=== PATIENT | male | born 1945 | race Caucasian/White ===

== ENCOUNTER 2016-12-11 22:03 | Emergency (ER) | payer MEDICARE ==
--- NOTE | 2016-12-11 22:46 | EDM.PDOC ---
ED HPI GENERAL MEDICAL PROBLEM - General Chief Complaint: Cardiovascular Problem Stated Complaint: A FIB Time Seen by Provider: 12/11/16 22:15 Source of Information: Reports: Patient History Limitations: Reports: No Limitations - History of Present Illness INITIAL COMMENTS - FREE TEXT/NARRATIVE: pt was doing alot of mowing and he developed some tightness in his chest and felt like his heart was irregular. He states that started about 8 thirty and it did persist. [facility] He feels good now. He states this improved on the way in and now he feels back to normmal with no tightness. Onset: Today, Sudden Duration: Hour(s): Location: Reports: Chest Associated Symptoms: Reports: Other (pt had no severe pain but he did have chest tightness. ) - Related Data Allergies Allergy/AdvReac Type Severity Reaction Status Date / Time shellfish derived Allergy Anaphylactic Verified 12/11/16 22:18 Shock Sulfa (Sulfonamide Allergy Hives Verified 12/11/16 22:18 Antibiotics) Home Meds: Home Meds Apixaban [Eliquis] 5 mg PO BID 12/11/16 [History] Hydrochlorothiazide 1 tab PO DAILY 12/11/16 [History] Past Medical History Cardiovascular History: Reports: Afib Respiratory History: Reports: Sleep Apnea Musculoskeletal History: Reports: Fracture - Past Surgical History HEENT Surgical History: Reports: Other (See Below) Other HEENT Surgeries/Procedures: deviated septum Musculoskeletal Surgical History: Reports: Other (See Below) Other Musculoskeletal Surgeries/Procedures:: jaw surgery d/t fracture Social & Family History - Tobacco Use Smoking Status *Q: Heavy Tobacco Smoker Years of Tobacco use: 35 Packs/Tins Daily: 1 - Alcohol Use Days Per Week of Alcohol Use: 5 Number of Drinks Per Day: 1 Total Drinks Per Week: 5 - Recreational Drug Use Recreational Drug Use: No ED ROS GENERAL - Review of Systems Review Of Systems: See Below Constitutional: Reports: No Symptoms HEENT: Reports: No Symptoms Respiratory: Reports: No Symptoms Cardiovascular: Reports: Palpitations, Other ( chest tightness. ) Endocrine: Reports: No Symptoms GI/Abdominal: Reports: No Symptoms : Reports: No Symptoms Musculoskeletal: Reports: No Symptoms Skin: Reports: No Symptoms Neurological: Reports: No Symptoms Psychiatric: Reports: No Symptoms ED EXAM, GENERAL - Physical Exam Exam: See Below Free Text/Narrative:: pt had good color and his rhythm was sinus on arrival. He does have a left bundle branch block. We have no old ekgs here to compare. Will attempt to get a old ekg from [facility] in the [facility]. Exam Limited By: No Limitations General Appearance: Alert, No Apparent Distress, Other (pt states all of the discomfort is gone. ) Ears: Normal TMs Nose: Normal Inspection Throat/Mouth: Normal Inspection Head: Atraumatic Neck: Normal Inspection Respiratory/Chest: No Respiratory Distress Cardiovascular: Regular Rate, Rhythm GI/Abdominal: Soft, Non-Tender (Male) Exam: Normal Inspection Rectal (Males) Exam: Deferred Back Exam: Normal Inspection Extremities: Normal Inspection Neurological: Alert, Oriented, Normal Cognition Course - Vital Signs Last Recorded V/S: Last Vital Signs Temp 35.5 C 12/11/16 22:13 Pulse 86 12/11/16 22:58 Resp 16 12/11/16 22:38 BP 128/70 12/11/16 22:58 Pulse Ox 94 L 12/11/16 22:58 - Orders/Labs/Meds Labs: Laboratory Tests 12/11/16 12/11/16 12/11/16 Range/Units 22:35 22:35 22:35 WBC 9.0 (4.5-11.0) K/uL RBC 5.13 (4.30-5.90) M/uL Hgb 16.1 H (12.0-15.0) g/dL Hct 47.2 (40.0-54.0) % MCV 92 (80-98) fL MCH 31 (27-31) pg MCHC 34 (32-36) % Plt Count 238 (150-400) K/uL Neut % (Auto) 59 (36-66) % Lymph % (Auto) 28 (24-44) % [place] % (Auto) 10 H (2-6) % Eos % (Auto) 2 (2-4) % Baso % (Auto) 1 (0-1) % Sodium 142 (140-148) mmol/L Potassium 3.3 L (3.6-5.2) mmol/L Chloride 106 (100-108) mmol/L Carbon Dioxide 27 (21-32) mmol/L Anion Gap 12.3 (5.0-14.0) mmol/L BUN 21 H (7-18) mg/dL Creatinine 1.0 (0.8-1.3) mg/dL Est Cr Clr Drug Dosing 74.25 mL/min Estimated GFR (MDRD) > 60 (>60) Glucose 94 (74-106) mg/dL Calcium 8.8 (8.5-10.1) mg/dL Magnesium (1.8-2.4) mg/dL Total Bilirubin 0.3 (0.2-1.0) mg/dL AST 24 (15-37) U/L ALT 37 (12-78) U/L Alkaline Phosphatase 63 (46-116) U/L Creatine Kinase 225 (39-308) U/L Troponin I < 0.017 (0.000-0.056) ng/mL Total Protein 6.9 (6.4-8.2) g/dL Albumin 3.4 (3.4-5.0) g/dL Globulin 3.5 (2.3-3.5) g/dL Albumin/Globulin Ratio 1.0 L (1.2-2.2) Urine Color Urine Appearance Urine pH (4.5-8.0) Ur Specific [place] (1.008-1.030) Urine Protein (NEGATIVE) mg/dL Urine Glucose (UA) (NEGATIVE) mg/dL Urine Ketones (NEGATIVE) mg/dL Urine Occult Blood (NEGATIVE) Urine Nitrite (NEGAITVE) Urine Bilirubin (NEGATIVE) Urine Urobilinogen (NORMAL) mg/dL Ur Leukocyte Esterase (NEGATIVE) Urine RBC (0-5) Urine WBC (0-5) Ur Epithelial Cells Amorphous Sediment Urine Bacteria Urine Mucus 12/11/16 12/11/16 Range/Units 22:35 23:02 WBC (4.5-11.0) K/uL RBC (4.30-5.90) M/uL Hgb (12.0-15.0) g/dL Hct (40.0-54.0) % MCV (80-98) fL MCH (27-31) pg MCHC (32-36) % Plt Count (150-400) K/uL Neut % (Auto) (36-66) % Lymph % (Auto) (24-44) % [place] % (Auto) (2-6) % Eos % (Auto) (2-4) % Baso % (Auto) (0-1) % Sodium (140-148) mmol/L Potassium (3.6-5.2) mmol/L Chloride (100-108) mmol/L Carbon Dioxide (21-32) mmol/L Anion Gap (5.0-14.0) mmol/L BUN (7-18) mg/dL Creatinine (0.8-1.3) mg/dL Est Cr Clr Drug Dosing mL/min Estimated GFR (MDRD) (>60) Glucose (74-106) mg/dL Calcium (8.5-10.1) mg/dL Magnesium 2.0 (1.8-2.4) mg/dL Total Bilirubin (0.2-1.0) mg/dL AST (15-37) U/L ALT (12-78) U/L Alkaline Phosphatase (46-116) U/L Creatine Kinase (39-308) U/L Troponin I (0.000-0.056) ng/mL Total Protein (6.4-8.2) g/dL Albumin (3.4-5.0) g/dL Globulin (2.3-3.5) g/dL Albumin/Globulin Ratio (1.2-2.2) Urine Color Yellow Urine Appearance Clear Urine pH 5.0 (4.5-8.0) Ur Specific [place] 1.020 (1.008-1.030) Urine Protein Negative (NEGATIVE) mg/dL Urine Glucose (UA) Normal (NEGATIVE) mg/dL Urine Ketones Negative (NEGATIVE) mg/dL Urine Occult Blood Moderate (NEGATIVE) Urine Nitrite Negative (NEGAITVE) Urine Bilirubin Negative (NEGATIVE) Urine Urobilinogen Normal (NORMAL) mg/dL Ur Leukocyte Esterase Negative (NEGATIVE) Urine RBC 10-20 H (0-5) Urine WBC 0-5 (0-5) Ur Epithelial Cells Not seen Amorphous Sediment Rare Urine Bacteria Not seen Urine Mucus Not seen Meds: Medications Discontinued Medications Generic Name Dose Route Start Last Admin Trade Name Mikeq PRN Reason Stop Dose Admin Potassium Chloride 20 meq 12/12/16 09:00 12/12/16 00:19 Klor-Con M20 PO 20 meq DAILY YECENIA Administration Potassium Chloride Confirm 12/12/16 00:18 Klor-Con M20 Administered 12/12/16 00:19 Dose 20 meq .ROUTE .STK-MED ONE - Re-Assessments/Exams Free Text/Narrative Re-Assessment/Exam: 12/11/16 23:27 pt has k which is 3.3 on the low side, his trop is normal. He does have some rbcs in his urine. He has a high hg. 12/12/16 00:08 Ekg from [facility] was obtained which showed a variable bundle. 12/14/16 13:41 Departure - Departure Time of Disposition: 00:11 Disposition: Home, Self-Care 01 Condition: Fair Clinical Impression: Heart palpitations, Hypokalemia, History of atrial fibrillation Instructions: Atrial Fibrillation, [id number] Referrals: PCP,None [Primary Care Provider] - Forms: ED Department Discharge Care Plan Goals: avoid rigorous activity, keep appt for stress test on tue. rtc if pt develops a rapid heart beat. cont same meds, add kcl 20meq 1 tab daily send a copy of his ekgs and his labs with him.
[2016-12-11 23:05] VITALS: BP 128/70
[2016-12-12] MEDS ORDERED: Potassium Chloride 20 MEQ Tab.ER ONE (00:18)
[2016-12-12] MEDS ORDERED: Potassium Chloride 20 MEQ Tab.ER PO SCH (09:00)
== END 2016-12-12 00:20 | disposition home or self-care (01) ==
LOC: JP.ED 22:03
DX: E87.6 Hypokalemia (principal); R00.2 Palpitations; F17.210 Nicotine dependence, cigarettes, uncomplicated; Z91.013 Allergy to seafood; Z88.2 Allergy status to sulfonamides; Z79.899 Other long term (current) drug therapy
CPT/HCPCS: 36415; 80053; 81001; 82550; 83735; 84484; 85025; 93005; 99285; A9270; 93010; 99284

== ENCOUNTER 2017-09-29 08:33 | Emergency (ER) | payer MEDICARE ==
[2017-09-29] MEDS ORDERED: Sodium Chloride 0.9% 10 ML Syringe FLUSH PRN (08:49)
[2017-09-29] MEDS ORDERED: Aspirin 81 MG Tab.Chew PO ONE (08:49)
[2017-09-29] MEDS ORDERED: Metoprolol Tartrate 5 MG/5 ML SDV IVPUSH ONE (08:50)
--- NOTE | 2017-09-29 08:53 | EDM.PDOC ---
ED HPI GENERAL MEDICAL PROBLEM - General Chief Complaint: Cardiovascular Problem Stated Complaint: ATRIAL FIB Time Seen by Provider: 09/29/17 08:48 Source of Information: Reports: Patient, RN Notes Reviewed History Limitations: Reports: No Limitations - History of Present Illness INITIAL COMMENTS - FREE TEXT/NARRATIVE: 72-year-old gentleman presents to the emergency department today with complaint of chest pain and palpitations, he has a known history of atrial fibrillation with a left bundle branch block currently on anticoagulation of Eliquis. He states this particular event started at 8:00 this morning with palpitations and chest pain he presented to the emergency department for further evaluation, with the chest pain he did have shortness of breath no nausea no vomiting no diaphoresis Chest Pain Score (Numeric/FACES): 0 - Related Data Allergies Allergy/AdvReac Type Severity Reaction Status Date / Time shellfish derived Allergy Anaphylactic Verified 09/29/17 08:45 Shock Sulfa (Sulfonamide Allergy Hives Verified 09/29/17 08:45 Antibiotics) Home Meds: Home Meds Apixaban [Eliquis] 5 mg PO BID 12/11/16 [History] *Crestor 1 tab PO ASDIRECTED 09/29/17 [History] *Lisinopril 1 tab PO DAILY 09/29/17 [History] Hydrocodone/Acetaminophen [Hydrocodon-Acetaminophen 5-325] 1 - 2 tab PO ASDIRECTED PRN 09/29/17 [History] Past Medical History Cardiovascular History: Reports: Afib Respiratory History: Reports: Sleep Apnea Musculoskeletal History: Reports: Fracture - Past Surgical History HEENT Surgical History: Reports: Other (See Below) Other HEENT Surgeries/Procedures: deviated septum Musculoskeletal Surgical History: Reports: Other (See Below) Other Musculoskeletal Surgeries/Procedures:: jaw surgery d/t fracture Social & Family History - Tobacco Use Smoking Status *Q: Current Every Day Smoker Years of Tobacco use: 40 Packs/Tins Daily: 0.7 - Caffeine Use Caffeine Use: Reports: Coffee - Alcohol Use Days Per Week of Alcohol Use: 7 Number of Drinks Per Day: 2 Total Drinks Per Week: 14 - Recreational Drug Use Recreational Drug Use: No ED ROS GENERAL - Review of Systems Review Of Systems: See Below Constitutional: Reports: No Symptoms HEENT: Reports: No Symptoms Respiratory: Reports: Shortness of Breath Cardiovascular: Reports: Chest Pain, Dyspnea on Exertion, Palpitations GI/Abdominal: Reports: No Symptoms Musculoskeletal: Reports: No Symptoms Skin: Reports: No Symptoms Neurological: Reports: No Symptoms ED EXAM, GENERAL - Physical Exam Exam: See Below Free Text/Narrative:: General: Male, not in any distress, alert and oriented x3 HEENT: head is atraumatic normocephalic, eyes pupils equal round reactive to light, sclera clear no conjunctivitis appreciated. Ears tympanic membranes clear and [place] landmarks and light reflex are present bilaterally canals are clear. Nose no septal deviation, nares are clear, no blood present. Mouth mucosa is moist and pink no erythema or exudate noted in soft palate, tongue is midline uvula is midline, dentition is intact. Neck: Supple no thyromegaly no tracheal deviation. Nodes: Cervical nodes subclavicular nodes nontender no palpable lymphadenopathy noted. Lungs: clear to auscultation bilaterally with symmetrical respirations, no adventitious noise appreciated. CV: Tachycardic Regular rate and rhythm S1 and S2 appreciated no murmurs rubs or gallops noted. Abdomen: Soft, nontender, no palpable masses or organomegaly appreciated, no distention no guarding bowel sounds are present, . Neuro: Cranial nerves II through XII grossly intact Skin: Warm and dry, intact Extremities: No lower extremity edema appreciated, Course - Vital Signs Last Recorded V/S: Last Vital Signs Temp 97.2 F 09/29/17 08:44 Pulse 118 H 09/29/17 09:05 Resp 11 L 09/29/17 08:44 BP 131/66 09/29/17 09:05 Pulse Ox 97 09/29/17 08:44 - Orders/Labs/Meds Orders: Active Orders 24 hr Category Date Time Status Cardiac Monitoring [RC] .As Directed Care 09/29/17 08:49 Active EKG Documentation Completion [RC] ASDIRECTED Care 09/29/17 08:49 Active Peripheral IV Care [RC] . DIRECTED Care 09/29/17 08:49 Active Sodium Chloride 0.9% [Normal Saline] 1,000 ml Med 09/29/17 10:30 Active IV ASDIRECTED Sodium Chloride 0.9% [Saline Flush] Med 09/29/17 08:49 Active 10 ml FLUSH ASDIRECTED PRN Peripheral IV Insertion Adult [OM.PC] Stat Oth 09/29/17 08:49 Ordered Saline Lock Insert [OM.PC] Stat Oth 09/29/17 08:49 Ordered EKG 12 Lead [EK] Stat Ther 09/29/17 08:49 Ordered Medication Orders Sodium Chloride (Normal Saline) 1,000 mls @ 500 mls/hr IV ASDIRECTED YECENIA Last Admin: 09/29/17 10:21 Dose: 500 mls/hr Sodium Chloride (Saline Flush) 10 ml FLUSH ASDIRECTED PRN PRN Reason: Keep Vein Open Last Admin: 09/29/17 09:07 Dose: 10 ml Labs: Laboratory Tests 09/29/17 09/29/17 Range/Units 08:54 08:54 WBC 5.5 (4.5-11.0) K/uL RBC 4.88 (4.30-5.90) M/uL Hgb 15.3 H (12.0-15.0) g/dL Hct 44.5 (40.0-54.0) % MCV 91 (80-98) fL MCH 31 (27-31) pg MCHC 34 (32-36) % Plt Count 245 (150-400) K/uL Neut % (Auto) 47 (36-66) % Lymph % (Auto) 35 (24-44) % [place] % (Auto) 14 H (2-6) % Eos % (Auto) 3 (2-4) % Baso % (Auto) 1 (0-1) % Sodium 139 L (140-148) mmol/L Potassium 3.8 (3.6-5.2) mmol/L Chloride 105 (100-108) mmol/L Carbon Dioxide 25 (21-32) mmol/L Anion Gap 12.8 (5.0-14.0) mmol/L BUN 14 (7-18) mg/dL Creatinine 1.1 (0.8-1.3) mg/dL Est Cr Clr Drug Dosing 66.55 mL/min Estimated GFR (MDRD) > 60 (>60) Glucose 119 H (74-106) mg/dL Calcium 9.3 (8.5-10.1) mg/dL Magnesium 1.9 (1.8-2.4) mg/dL Total Bilirubin 0.5 D (0.2-1.0) mg/dL AST 26 (15-37) U/L ALT 26 (12-78) U/L Alkaline Phosphatase 63 (46-116) U/L CK-MB (CK-2) 3.0 (0-3.6) mg/mL Troponin I < 0.017 (0.000-0.056) ng/mL Total Protein 6.4 (6.4-8.2) g/dL Albumin 3.2 L (3.4-5.0) g/dL Globulin 3.2 (2.3-3.5) g/dL Albumin/Globulin Ratio 1.0 L (1.2-2.2) Meds: Medications Generic Name Dose Route Start Last Admin Trade Name Freq PRN Reason Stop Dose Admin Sodium Chloride 1,000 mls @ 500 mls/hr 09/29/17 10:30 09/29/17 10:21 Normal Saline IV 500 mls/hr ASDIRECTED YECENIA Administration Sodium Chloride 10 ml 09/29/17 08:49 09/29/17 09:07 Saline Flush FLUSH 10 ml ASDIRECTED PRN Administration Keep Vein Open Discontinued Medications Generic Name Dose Route Start Last Admin Trade Name Freq PRN Reason Stop Dose Admin Aspirin 324 mg 09/29/17 08:49 09/29/17 09:03 Aspirin PO 09/29/17 08:50 324 mg ONETIME ONE Administration Metoprolol Tartrate 5 mg 09/29/17 08:50 09/29/17 09:05 Lopressor IVPUSH 09/29/17 08:51 5 mg ONETIME ONE Administration - Re-Assessments/Exams Free Text/Narrative Re-Assessment/Exam: 09/29/17 10:19 Remained tachycardic 1:15 range called and discussed case with cardiology on- call at [facility] where he normally receives his care recommended fluid challenge then if remains tachycardic discharge home on metoprolol with follow- up in the office next week for further evaluation Departure - Departure Time of Disposition: 11:37 Disposition: Home, Self-Care 01 Condition: Fair Clinical Impression: Heart palpitations, Atrial fib/flutter, transient Referrals: PCP,None [Primary Care Provider] - Forms: ED Department Discharge Additional Instructions: Start the metoprolol tomorrow 12.5 mg twice a day please follow-up with your geriatric personal care aide next week, call return to the emergency department worsening of symptoms - My Orders Last 24 Hours: My Active Orders 09/29/17 08:49 Cardiac Monitoring [RC] .As Directed EKG Documentation Completion [RC] ASDIRECTED Peripheral IV Care [RC] . DIRECTED Sodium Chloride 0.9% [Saline Flush] 10 ml FLUSH ASDIRECTED PRN Peripheral IV Insertion Adult [OM.PC] Stat Saline Lock Insert [OM.PC] Stat EKG 12 Lead [EK] Stat 09/29/17 10:30 Sodium Chloride 0.9% [Normal Saline] 1,000 ml IV ASDIRECTED - Assessment/Plan Last 24 Hours: My Active Orders 09/29/17 08:49 Cardiac Monitoring [RC] .As Directed EKG Documentation Completion [RC] ASDIRECTED Peripheral IV Care [RC] . DIRECTED Sodium Chloride 0.9% [Saline Flush] 10 ml FLUSH ASDIRECTED PRN Peripheral IV Insertion Adult [OM.PC] Stat Saline Lock Insert [OM.PC] Stat EKG 12 Lead [EK] Stat 09/29/17 10:30 Sodium Chloride 0.9% [Normal Saline] 1,000 ml IV ASDIRECTED Plan: Assessment Acuity = acute Site and laterality = atrial fib \ flutter with rapid ventricular response with spontaneous conversion Etiology = unclear etiology Manifestations = none Location of injury = Home Lab values = EKG demonstrates a left bundle branch block which is not new and then conversion to sinus rhythm, CBC, CMP unremarkable troponin negative, CK-MB negative Plan Trial of 500 mL fluid bolus challenge of normal saline in combination with 5 mg metoprolol he remained tachycardic, per recommendations cardiology will start metoprolol 12.5 mg by mouth twice a day he will follow-up with his geriatric personal care aide next week This note was dictated using [employer] voice recognition software please call with any questions on syntax or grammar.
--- NOTE | 2017-09-29 09:26 | CR ---
CHEST: Portable CLINICAL HISTORY:Chest pain COMPARISON:None FINDINGS: Heart and pulmonary vascularity appear normal. There are atherosclerotic changes in the ao rta.. No infiltrate effusion or pneumothorax seen Impression: No acute cardiopulmonary process.
[2017-09-29] MEDS ORDERED: Sodium Chloride 0.9% 1,000 ML IV SCH (10:30)
[2017-09-29 12:10] VITALS: BP 136/92
== END 2017-09-29 12:05 | disposition home or self-care (01) ==
LOC: JP.ED 08:33
DX: I48.91 Unspecified atrial fibrillation (principal); I48.92 Unspecified atrial flutter; F17.210 Nicotine dependence, cigarettes, uncomplicated; Z79.899 Other long term (current) drug therapy; Z88.2 Allergy status to sulfonamides; Z91.013 Allergy to seafood
CPT/HCPCS: 36415; 71045; 80053; 82553; 83735; 84484; 85025; 93005; 96361; 96374; 99284; A9270; J3490; J7030; J7050

== ENCOUNTER 2020-11-04 11:49 | Emergency (ER) | payer MEDICARE ==
--- NOTE | 2020-11-04 12:27 | EDM.PDOC ---
ED HPI GENERAL MEDICAL PROBLEM - General Chief Complaint: Abdominal Pain Stated Complaint: ABDOMINAL PAIN Time Seen by Provider: 11/04/20 12:20 Source of Information: Reports: Patient, RN Notes Reviewed History Limitations: Reports: No Limitations - History of Present Illness INITIAL COMMENTS - FREE TEXT/NARRATIVE: 75-year-old gentleman presents emergency department day complaint of abdominal pain, states the pain come on suddenly at 930 this morning is constant in nature he is not passed any gas he had a bowel movement 1 hour prior to presentation to department. He has not had any abdominal surgeries. No nausea or vomiting no shortness of breath or chest pain Upper Abdomen Pain Score (Numeric/FACES): 8 - Related Data Allergies Allergy/AdvReac Type Severity Reaction Status Date / Time shellfish derived Allergy Anaphylactic Verified 11/04/20 12:20 Shock Sulfa (Sulfonamide Allergy Hives Verified 11/04/20 12:20 Antibiotics) Home Meds: Home Meds Apixaban [Eliquis] 5 mg PO BID 12/11/16 [History] *Crestor 1 tab PO ASDIRECTED 09/29/17 [History] *Lisinopril 1 tab PO DAILY 09/29/17 [History] Past Medical History HEENT History: Reports: Allergic Rhinitis, Impaired Vision Cardiovascular History: Reports: Afib Respiratory History: Reports: Sleep Apnea Genitourinary History: Reports: Prostate Disorder Musculoskeletal History: Reports: Fracture Dermatologic History: Reports: Eczema - Infectious Disease History Infectious Disease History: Reports: Chicken Pox, Influenza, Measles, Pertussis (Whooping Cough) - Past Surgical History HEENT Surgical History: Reports: Other (See Below) Other HEENT Surgeries/Procedures: deviated septum Cardiovascular Surgical History: Reports: Cardiac Ablation GI Surgical History: Reports: None Musculoskeletal Surgical History: Reports: Other (See Below) Other Musculoskeletal Surgeries/Procedures:: jaw surgery d/t fracture Social & Family History - Tobacco Use Tobacco Use Status *Q: Never Tobacco User - Caffeine Use Caffeine Use: Reports: Coffee ED ROS GENERAL - Review of Systems Review Of Systems: See Below Constitutional: Denies: Fever, Chills HEENT: Reports: No Symptoms Respiratory: Reports: No Symptoms Cardiovascular: Reports: No Symptoms GI/Abdominal: Reports: Abdominal Pain, Distension. Denies: Flatus, Nausea, Vomiting : Reports: No Symptoms ED EXAM, GI/ABD - Physical Exam Exam: See Below Exam Limited By: No Limitations General Appearance: Alert, Mild Distress Respiratory/Chest: No Respiratory Distress, Lungs Clear, Normal Breath Sounds, No Accessory Muscle Use, Chest Non-Tender Cardiovascular: No Murmur, Irregularly Irregular GI/Abdominal Exam: Soft, Distended, Tender. No: Guarding, Rigid, Rebound Course - Vital Signs Last Recorded V/S: Last Vital Signs Temp 97.7 F 11/04/20 12:25 Pulse 55 L 11/04/20 16:30 Resp 18 11/04/20 16:30 BP 141/71 H 11/04/20 16:30 Pulse Ox 97 11/04/20 16:30 - Orders/Labs/Meds Orders: Active Orders 24 hr Category Date Time Status Enema [RC] ASDIRECTED Care 11/04/20 17:40 Active Peripheral IV Care [RC] . DIRECTED Care 11/04/20 12:24 Active Renal Ltd Bi [US] Stat Exams 11/04/20 16:00 Taken Lactated Ringers [Ringers, Lactated] 1,000 ml Med 11/04/20 12:30 Active IV ASDIRECTED Sodium Chloride 0.9% [Saline Flush] Med 11/04/20 12:24 Active 10 ml FLUSH ASDIRECTED PRN Sodium Chloride 0.9% [Saline Flush] Med 11/04/20 13:42 Active 10 ml FLUSH ONETIME PRN Peripheral IV Insertion Adult [OM.PC] Urgent Oth 11/04/20 12:24 Ordered Medication Orders Lactated Ringer's (Ringers, Lactated) 1,000 mls @ 999 mls/hr IV ASDIRECTED [facility] Last Admin: 11/04/20 12:43 Dose: 999 mls/hr Documented by: PREILOR Sodium Chloride (Sodium Chloride 0.9% 10 Ml Syringe) 10 ml FLUSH ASDIRECTED PRN PRN Reason: Keep Vein Open Last Admin: 11/04/20 18:29 Dose: 10 ml Documented by: PREILOR Sodium Chloride (Sodium Chloride 0.9% 10 Ml Syringe) 10 ml FLUSH ONETIME PRN PRN Reason: per radiology protocol Last Admin: 11/04/20 14:00 Dose: 10 ml Documented by: CATHY Labs: Laboratory Tests 11/04/20 11/04/20 11/04/20 Range/Units 12:33 12:33 12:33 WBC 9.9 (4.5-11.0) K/uL RBC 5.02 (4.30-5.90) M/uL Hgb 15.6 H (12.0-15.0) g/dL Hct 46.8 (40.0-54.0) % MCV 93 (80-98) fL MCH 31 (27-31) pg MCHC 33 (32-36) % Plt Count 238 (150-400) K/uL Neut % (Auto) 71.0 H (36-66) % Lymph % (Auto) 14.5 L (24-44) % [place] % (Auto) 10.6 H (2-6) % Eos % (Auto) 1.2 L (2-4) % Baso % (Auto) 2.7 H (0-1) % Sodium 141 (140-148) mmol/L Potassium 4.3 (3.6-5.2) mmol/L Chloride 105 (100-108) mmol/L Carbon Dioxide 27 (21-32) mmol/L Anion Gap 9.2 (5.0-14.0) mmol/L BUN 14 (7-18) mg/dL Creatinine 0.9 (0.8-1.3) mg/dL Est Cr Clr Drug Dosing 77.86 mL/min Estimated GFR (MDRD) > 60 (>60) Glucose 110 H (74-106) mg/dL Lactic Acid 1.4 (0.4-2.0) mmol/L Calcium 9.3 (8.5-10.1) mg/dL Total Bilirubin 0.5 (0.2-1.0) mg/dL AST 20 (15-37) U/L ALT 27 (12-78) U/L Alkaline Phosphatase 73 (46-116) U/L Troponin I < 0.017 (0.000-0.056) ng/mL Total Protein 6.9 (6.4-8.2) g/dL Albumin 3.6 (3.4-5.0) g/dL Globulin 3.3 (2.3-3.5) g/dL Albumin/Globulin Ratio 1.1 L (1.2-2.2) Urine Color (YELLOW) Urine Appearance (CLEAR) Urine pH (5.0-8.0) Ur Specific [place] (1.008-1.030) Urine Protein (NEGATIVE) mg/dL Urine Glucose (UA) (NEGATIVE) mg/dL Urine Ketones (NEGATIVE) mg/dL Urine Occult Blood (NEGATIVE) Urine Nitrite (NEGATIVE) Urine Bilirubin (NEGATIVE) Urine Urobilinogen (0.2-1.0) EU/dL Ur Leukocyte Esterase (NEGATIVE) Urine RBC (0-5) Urine WBC (0-5) Ur Epithelial Cells Amorphous Sediment Urine Bacteria Urine Mucus 11/04/20 Range/Units 14:10 WBC (4.5-11.0) K/uL RBC (4.30-5.90) M/uL Hgb (12.0-15.0) g/dL Hct (40.0-54.0) % MCV (80-98) fL MCH (27-31) pg MCHC (32-36) % Plt Count (150-400) K/uL Neut % (Auto) (36-66) % Lymph % (Auto) (24-44) % [place] % (Auto) (2-6) % Eos % (Auto) (2-4) % Baso % (Auto) (0-1) % Sodium (140-148) mmol/L Potassium (3.6-5.2) mmol/L Chloride (100-108) mmol/L Carbon Dioxide (21-32) mmol/L Anion Gap (5.0-14.0) mmol/L BUN (7-18) mg/dL Creatinine (0.8-1.3) mg/dL Est Cr Clr Drug Dosing mL/min Estimated GFR (MDRD) (>60) Glucose (74-106) mg/dL Lactic Acid (0.4-2.0) mmol/L Calcium (8.5-10.1) mg/dL Total Bilirubin (0.2-1.0) mg/dL AST (15-37) U/L ALT (12-78) U/L Alkaline Phosphatase (46-116) U/L Troponin I (0.000-0.056) ng/mL Total Protein (6.4-8.2) g/dL Albumin (3.4-5.0) g/dL Globulin (2.3-3.5) g/dL Albumin/Globulin Ratio (1.2-2.2) Urine Color Yellow (YELLOW) Urine Appearance Clear (CLEAR) Urine pH 7.0 (5.0-8.0) Ur Specific [place] 1.020 (1.008-1.030) Urine Protein Negative (NEGATIVE) mg/dL Urine Glucose (UA) Negative (NEGATIVE) mg/dL Urine Ketones 15 H (NEGATIVE) mg/dL Urine Occult Blood Trace-intact H (NEGATIVE) Urine Nitrite Negative (NEGATIVE) Urine Bilirubin Negative (NEGATIVE) Urine Urobilinogen 0.2 (0.2-1.0) EU/dL Ur Leukocyte Esterase Negative (NEGATIVE) Urine RBC 0-5 (0-5) Urine WBC 0-5 (0-5) Ur Epithelial Cells Not seen Amorphous Sediment Rare Urine Bacteria Rare Urine Mucus Rare Meds: Medications Generic Name Dose Route Start Last Admin Trade Name Freq PRN Reason Stop Dose Admin Lactated Ringer's 1,000 mls @ 999 mls/hr 11/04/20 12:30 11/04/20 12:43 Ringers, Lactated IV 999 mls/hr ASDIRECTED YECENIA Administration Sodium Chloride 10 ml 11/04/20 12:24 11/04/20 18:29 Sodium Chloride 0.9% 10 Ml Syringe FLUSH 10 ml ASDIRECTED PRN Administration Keep Vein Open Sodium Chloride 10 ml 11/04/20 13:42 11/04/20 14:00 Sodium Chloride 0.9% 10 Ml Syringe FLUSH 10 ml ONETIME PRN Administration per radiology protocol Discontinued Medications Generic Name Dose Route Start Last Admin Trade Name Cassandra PRN Reason Stop Dose Admin Fentanyl 50 mcg 11/04/20 12:25 11/04/20 12:43 Fentanyl 100 Mcg/2 Ml Sdv IVPUSH 11/04/20 12:26 50 mcg ONETIME ONE Administration Hydromorphone HCl 1 mg 11/04/20 12:53 11/04/20 13:00 Hydromorphone 1 Mg/Ml Syringe IVPUSH 11/04/20 12:54 1 mg ONETIME ONE Administration Hydromorphone HCl 1 mg 11/04/20 14:49 11/04/20 15:01 Hydromorphone 1 Mg/Ml Syringe IVPUSH 11/04/20 14:50 1 mg ONETIME ONE Administration Sodium Chloride 85 mls @ 3.5 mls/sec 11/04/20 13:45 11/04/20 14:00 Normal Saline IV 11/04/20 18:00 3.5 mls/sec ASDIRECTED YECENIA Administration Iopamidol 150 ml 11/04/20 13:42 11/04/20 14:01 Iopamidol 612 Mg/Ml 500 Ml Multipack Bottle IV 11/04/20 13:43 150 ml ONETIME ONE Administration Ketorolac Tromethamine 30 mg 11/04/20 14:18 11/04/20 14:56 Ketorolac 30 Mg/Ml Sdv IVPUSH 11/04/20 14:19 30 mg ONETIME ONE Administration Departure - Departure Time of Disposition: 19:01 Disposition: Home, Self-Care 01 Condition: Fair Clinical Impression: Constipation Qualifiers: Constipation type: slow transit constipation Qualified Code(s): K59.01 - Slow transit constipation - Discharge Information Instructions: Constipation, Adult Referrals: Sammi Figueroa MD [Primary Care Provider] - Forms: ED Department Discharge Additional Instructions: Try the colonoscopy prep, please followup with your primary care provider in 3- 5 days if not better, please call return to the emergency department with worsening of symptoms. Sepsis Event Note (ED) - Focused Exam Vital Signs: Vital Signs Temp Pulse Resp BP Pulse Ox 11/04/20 16:30 55 L 18 141/71 H 97 11/04/20 15:03 56 L 20 148/69 H 95 11/04/20 13:44 55 L 18 157/73 H 95 11/04/20 12:55 51 L 20 97 11/04/20 12:25 97.7 F 50 L 24 H 164/87 H 96 11/04/20 12:07 97.7 F 50 L 24 H 164/87 H 96 - My Orders Last 24 Hours: My Active Orders 11/04/20 12:24 Peripheral IV Care [RC] . DIRECTED Sodium Chloride 0.9% [Saline Flush] 10 ml FLUSH ASDIRECTED PRN Peripheral IV Insertion Adult [OM.PC] Urgent 11/04/20 12:30 Lactated Ringers [Ringers, Lactated] 1,000 ml IV ASDIRECTED 11/04/20 13:42 Sodium Chloride 0.9% [Saline Flush] 10 ml FLUSH ONETIME PRN 11/04/20 16:00 Renal Ltd Bi [US] Stat 11/04/20 17:40 Enema [RC] ASDIRECTED - Assessment/Plan Last 24 Hours: My Active Orders 11/04/20 12:24 Peripheral IV Care [RC] . DIRECTED Sodium Chloride 0.9% [Saline Flush] 10 ml FLUSH ASDIRECTED PRN Peripheral IV Insertion Adult [OM.PC] Urgent 11/04/20 12:30 Lactated Ringers [Ringers, Lactated] 1,000 ml IV ASDIRECTED 11/04/20 13:42 Sodium Chloride 0.9% [Saline Flush] 10 ml FLUSH ONETIME PRN 11/04/20 16:00 Renal Ltd Bi [US] Stat 11/04/20 17:40 Enema [RC] ASDIRECTED Plan: Assessment Acuity = acute Site and laterality = functional constipation Etiology = slow transit time Manifestations = none Location of injury = Home Lab values = CBC CMP urinalysis unremarkable CT scan shows no acute process of there is multiple kidney and hepatic cysts ultrasound confirms this Plan Had some relief with a enema ride in the ED working to try the colonoscopy prep at home follow-up primary care 2 to 3 days This note was dictated using [employer] voice recognition software please call with any questions on syntax or grammar.
[2020-11-04] MEDS: Lactated Ringers 1,000 ML IV SCH (12:43)
[2020-11-04] MEDS: fentaNYL 100 MCG/2 ML SDV IVPUSH ONE (12:43)
[2020-11-04] MEDS: HYDROmorphone 1 MG/ML Syringe IVPUSH ONE ×2 (13:00→15:01)
--- NOTE | 2020-11-04 13:30 | CR ---
Abdomen 1V Flat CLINICAL HISTORY: Abdominal pain FINDINGS: The small intestinal gas pattern is nonspecific. There is some fecal retention. Right lateral abdomen is not completely imaged IMPRESSION: Limited study due to patient size Nonspecific intestinal gas pattern
[2020-11-04] MEDS: Sodium Chloride 0.9% 10 ML Syringe FLUSH PRN ×2 (14:00→18:29)
[2020-11-04] MEDS: Iopamidol 612 MG/ML 500 ML Multipack Bottle IV ONE (14:01)
--- NOTE | 2020-11-04 14:44 | CT ---
Abdomen Pelvis w Cont CLINICAL HISTORY: Abdominal pain, distention COMPARISON: None. TECHNIQUE: Transverse scans were obtained from the base of the lungs to the pubic symphysis following oral contrast and IV infusion of contrast.Auto dosage reduction and iterative reconstructiontechniques employed. FINDINGS: The lung bases are clear. The liver shows multiple well demarcated low-attenuation foci in both lobes consistent with small cysts.. The gallbladder contains at least two 1 cm. The spleen has a normal size and shape. The pancreas shows no mass or inflammatory change. The adrenal glands appear normal bilaterally . The kidneys contain multiple cysts bilaterally the largest measures 6.6 x 6.4 cm on the left. There is a higher density exophytic focus off the upper pole of the right kidney. This may represent a hemorrhagic cyst. No stones are seen. There is no hydronephrosis. The ureters have a normal course and caliber. The bladder has a normal contour. Prostate is enlarged The abdominal pelvic fat planes are well demarcated.. The aorta shows atheromatous plaque without aneurysm. There is no suspicious retroperitoneal adenopathy. The small intestinal configuration is nonacute. There is gas and feces throughout the colon. The appendix has a normal contour. There are a few scattered small diverticula without evidence of diverticulitis. IMPRESSION: Multiple hepatic and renal cysts. There is a higher density cyst off the upper pole of the right kidney. This may be hemorrhagic cyst but should be correlated with ultrasound. No mass, adenopathy or inflammatory change
[2020-11-04] MEDS: Ketorolac 30 MG/ML SDV IVPUSH ONE (14:56)
[2020-11-04 18:29] VITALS: BP 141/71; PULSE 55
--- NOTE | 2020-11-04 20:22 | CRLUS ---
For Patients: As a result of the Cures Act, medical imaging exams and procedure reports are released immediately into your electronic medical record. You may view this report before your referring provider. If you have questions, please contact your health care provider. INDICATION: Indeterminate density cyst in the right kidney. History of abdominal pain and bloating. COMPARISON: CT of the abdomen and pelvis from earlier today. TECHNIQUE: Limited ultrasound examination of the retroperitoneum was performed with attention to the kidneys. The urinary bladder is not included on today`s study. FINDINGS: The 2.2 centimeter rounded structure projecting medially from the upper pole of the right kidney is anechoic, with increased through transmission consistent with a simple cyst. The hypodensity seen on CT is consistent with a proteinaceous cyst. Given its benign appearance on ultrasound, no further follow-up is indicated. There are 3 simple cysts in the lower pole of the right kidney, measuring 2.0 x 1.7 x 1.3 centimeters, 2.2 x 1.9 x 2.1 centimeters, and 2.1 x 1.7 x 2.2 centimeters. An additional simple cyst is seen in the lower interpolar right kidney laterally, measuring 1.7 x 1.8 x 1.7 centimeters. On the left, there is a large simple cyst projecting from the lateral upper pole, measuring 6.8 x 6.2 x 6.4 centimeters. None of these other cysts require further follow-up radiographically. The kidneys are otherwise normal in their size, shape, and location. Cortical echogenicity and thickness is normal. There is no sign of hydronephrosis. The right kidney measures 12.0 x 5.4 x 4.8 cm. The left kidney measures 14.5 x 5.5 x 6.3 cm. There is normal color Doppler flow in both kidneys. The urinary bladder is not included on today study. IMPRESSION: Exophytic proteinaceous cyst measuring 2.2 centimeters in diameter projecting from the medial upper pole of the right kidney, requiring no further follow-up. Several other small simple cysts seen in the right kidney requiring no further follow-up. Large simple cyst in the upper pole of the left kidney measuring 6.8 centimeters requiring no further follow-up. Dictated by Javi Spear MD @ 11/04/2020 8:21:[address] Javi Spear @ Nov 04 2020 8:21PM
== END 2020-11-04 19:08 | disposition home or self-care (01) ==
LOC: JP.ED 11:49
DX: K59.01 Slow transit constipation (principal); I48.91 Unspecified atrial fibrillation; Z88.2 Allergy status to sulfonamides; Z91.013 Allergy to seafood; Z79.01 Long term (current) use of anticoagulants
CPT/HCPCS: 36415; 74018; 74177; 76775; 80053; 81001; 83605; 84484; 85025; 96374; 96375; 96376; 99284; J1170; J1885; J3010; J7120; Q9967